=== PATIENT | female | born 1960 | race Caucasian/White ===

== ENCOUNTER 2023-03-28 06:20 | Day surgery (SDC) | payer BC ==
[2023-03-25 12:33] VITALS: BMI 41.5
[2023-03-28] MEDS ORDERED: PROPOFOL 20 ML ONE ×2 (08:38→09:12)
[2023-03-28] MEDS ORDERED: Lidocaine 2% MPF 10 ML AMP (For Epidural Use) ONE (09:12)
== END 2023-03-28 09:42 | disposition home or self-care (01) ==
LOC: CSHSDC 06:20
PROVIDERS: ATTEND Internal Medicine Gastroenterology
PROC: 0DBL8ZZ Excision of Transverse Colon, Via Natural or Artificial Opening Endoscopic (ICD-10-PCS; principal; 2023-03-28)
DX: Z12.11 Encounter for screening for malignant neoplasm of colon (principal); D12.3 Benign neoplasm of transverse colon; F32.A Depression, unspecified; J30.9 Allergic rhinitis, unspecified; I10 Essential (primary) hypertension; E78.5 Hyperlipidemia, unspecified; Z79.899 Other long term (current) drug therapy; Z88.1 Allergy status to other antibiotic agents; Z87.39 Personal history of other diseases of the musculoskeletal system and connective tissue
CPT/HCPCS: 88305; J2704